=== PATIENT | female | born 1955 | race Caucasian/White ===

== ENCOUNTER 2020-11-01 22:12 | Emergency (ER) | payer OTHER, SELFPAY ==
--- NOTE | 2020-11-01 22:25 | DI.RAD.S_ITS ---
PROCEDURE: XR HIP W PEL IF DONE LT 2V INDICATIONS: fall with severe hip pain TECHNIQUE: AP pelvis with lateral view(s) of the left hip(s). COMPARISON: [facility], CT, CT PEL WO CON, 11/01/2020, 22:41. FINDINGS: Bones: There is a mildly displaced, impacted left subcapital femoral neck fracture. No dislocation. No fractures of the bones of the pelvis can be seen. Age-appropriate bony degenerative changes are seen. Note is made of osteitis pubis, which is not considered to be frankly abnormal in a woman of this age. Soft tissues: The visualized bowel gas pattern is normal. No suspicious soft tissue calcifications. IMPRESSION: Impacted left femoral neck fracture. Note: No significant discrepancy from the preliminary report. Dictated by: Benjy Vargas M.D. on 11/02/2020 at 8:02 Approved by: Benjy Vargas M.D. on 11/02/2020 at 8:03
[2020-11-01 22:27] VITALS: BP 171/70; PULSE 67; RESP 16; TEMP 36.6; O2SAT 98; BMI 27.3
--- NOTE | 2020-11-01 22:39 | DI.CT.S_ITS ---
PROCEDURE: CT PEL WO CON INDICATIONS: fall with hip/pelvis pain TECHNIQUE: Noncontrast 3 mm axial sections acquired through the bony pelvis, with coronal and sagittal reformatting. COMPARISON: [facility], CR, XR HIP W PEL IF DONE LT 2V, 11/01/2020, 22:20. FINDINGS: Image quality: Excellent. Bones: There is a mildly displaced, mildly angulated impacted left femoral neck fracture, within the subcapital region. No dislocation can be seen. No fractures of the bones of the pelvis can be seen. No right proximal femoral fracture is seen. Note is made of osteitis pubis, which is not considered to be frankly abnormal in a woman of this age. Soft tissues: Mild fluid inflammatory change can be seen surrounding the fracture. No dilated loops of bowel are seen. This patient is status post hysterectomy. No adnexal masses are seen. Mild prominence of groin lymph nodes can be seen, without sundar enlargement. IMPRESSION: Mildly displaced, impacted, mildly angulated left subcapital femoral neck fracture. Note: No significant discrepancy from the preliminary report. Dictated by: Benjy Vargas M.D. on 11/02/2020 at 8:04 Approved by: Benjy Vargas M.D. on 11/02/2020 at 8:05
--- NOTE | 2020-11-01 22:59 | ED_ITS ---
HPI - Extremity Injury (Lower) General Chief Complaint: Extremity Injury, Lower Stated Complaint: Broke hip, cant walk Time Seen by Provider: 11/01/20 22:19 Source: patient Mode of arrival: Wheelchair Limitations: no limitations History of Present Illness HPI Narrative: 65-year-old female nonsmoker with history of hypertension and atrial fibrillation presents with a friend and a chief complaint of left hip pain after a ground level fall earlier this evening. She was out to dinner in the [facility] when she was wearing slippery shoes and slipped in some water and then fell on her left hip. She has full recall of the event and denies any prodromal symptoms nor any head, neck or back injury. She does not take any anticoagulation for her atrial fibrillation. She denies any chest pain or shortness of breath. She has severe left hip pain which is significantly worse with attempts to ambulate or range of motion. She was evaluated on scene by paramedics and given some Toradol for pain relief and came here by private auto for evaluation. She denies any numbness, tingling or weakness. She has been NPO for liquids and solids since 170. Related Data Allergies Allergy/AdvReac Type Severity Reaction Status Date / Time No Known Drug Allergies Allergy Verified 11/01/20 22:27 Review of Systems Review of Systems Narrative: GENERAL: Denies chills, fatigue, malaise, fever, sweats. HEENT: Denies sinus pain, ear pain, sore throat, difficulty swallowing, dizziness. RESPIRATORY: Denies dyspnea, cough, wheezing, hemoptysis, sputum. CARDIOVASCULAR: Denies chest pain, palpitations, orthopnea, edema, GASTROINTESTINAL: Denies nausea, vomiting, abdominal pain, diarrhea, constipation, melena. : Denies dysuria, frequency, incontinence, hematuria, urinary retention. MUSCULOSKELETAL: See HPI SKIN: Denies rash, skin lesions, or other NEUROLOGIC: Denies weakness, headache, numbness, change in speech, confusion, seizures, incoordination. PSYCHIATRIC: No concerning psychosocial issues. 12 point review of systems is negative except for those stated above Patient History Social History Smoking Status: Never smoker Smoking Status: Never smoker alcohol intake frequency: holidays/special occasions only Substance Use Type: does not use Exam Narrative Exam Narrative: GENERAL: [65 year old patient appears stated age. Well-developed patient, in moderate distress, obviously in pain and rubbing her left hip HEAD: Atraumatic. Normocephalic. EYES: Pupils equal round and reactive. Extraocular motions intact. No scleral icterus. No injection or drainage. ENT: Nose without bleeding, purulent drainage. Throat without erythema, tonsillar hypertrophy or exudate. Airway patent. NECK: Trachea midline. Non tender CARDIOVASCULAR: Regular rate and rhythm without murmurs, gallops, or rubs. RESPIRATORY: Clear to auscultation. Breath sounds equal bilaterally. No wheezes, rales, or rhonchi. GASTROINTESTINAL: Abdomen soft, non-tender, nondistended. EXTREMITIES: Pain on palpation of left hip. No obvious deformities such as shortening or rotation. This is closed, isolated and neurovascularly intact. No knee or ankle pain. BACK: Nontender without deformity or crepitance. No flank tenderness. NEURO: AOx3. SKIN: No rash or erythema of visible areas Initial Vital Signs Initial Vital Signs: Vital Signs Temperature 98 F 11/01/20 22:27 Pulse Rate 67 11/01/20 22:27 Respiratory Rate 16 11/01/20 22:27 Blood Pressure 171/70 H 11/01/20 22:27 Pulse Oximetry 98 11/01/20 22:27 Scores CHADS-VASc Congestive heart failure: no Hypertension: yes Age 75 years or older: no Diabetes mellitus: no Stroke, TIA, or TE: no Vascular disease: no Age 65 to 74 years: no Sex category (female): Female CHADS-VASc Score: 2 Course Orders Ordered: ED Orders 11/01/20 22:25 XR hip w pel if done LT 2V Stat 11/01/20 22:39 CT pelvis wo con Stat 11/01/20 23:05 COVID19 -Nasal swab/Pre-Proc Stat Complete Blood Count AUTO DIFF Stat Comprehensive Metabolic Panel Stat 11/01/20 23:11 EKG-12 Lead Stat Discontinued Medications Hydromorphone HCl (Hydromorphone 0.5 Mg Inj) 0.5 mg IV NOW ONE Stop: 11/01/20 22:40 Last Admin: 11/01/20 23:14 Dose: 0.5 mg Documented by: SANDRA Hydromorphone HCl (Hydromorphone 0.5 Mg Inj) 0.5 mg IV NOW ONE Stop: 11/01/20 23:57 Last Admin: 11/02/20 00:00 Dose: 0.5 mg Documented by: TERESITA Hydromorphone HCl (Hydromorphone 0.5 Mg Inj) 0.5 mg IV NOW ONE Stop: 11/02/20 00:57 Last Admin: 11/02/20 01:01 Dose: 0.5 mg Documented by: SANDRA Sodium Chloride (Normal Saline 0.9%) 1,000 mls @ 125 mls/hr IV CONT JANIA Last Admin: 11/01/20 23:14 Dose: 125 mls/hr Documented by: SANDRA Ondansetron HCl (Ondansetron 4 Mg/2 Ml Inj) 4 mg IV NOW ONE Stop: 11/01/20 22:40 Last Admin: 11/01/20 23:13 Dose: 4 mg Documented by: SANDRA Consultations Consultation #1: OR at [facility] is currently on divert due to major repair and critical staffing. Sheri lives in [place] and requests transfer to [facility] in [place]. I've called the nursing traffic warehouse supervisor and they do have available beds. Attempting to push images. Face sheet faxed. Orthopedics have been paged. Consultation #2: Dr. Maki (hospitalist at [facility]) has called back and happy to accept on her service. Vital Signs Vital signs: Vital Signs - 8 hr 11/01/20 22:27 11/01/20 23:23 11/01/20 23:25 Temperature 98 F Pulse Rate 67 66 64 Respiratory Rate 16 Blood Pressure 171/70 H 163/72 H Pulse Oximetry 98 96 99 11/01/20 23:30 11/02/20 00:00 11/02/20 00:30 Temperature Pulse Rate 64 62 63 Respiratory Rate Blood Pressure 148/76 H 140/111 H 146/72 H Pulse Oximetry 96 97 95 11/02/20 01:00 Temperature Pulse Rate 63 Respiratory Rate Blood Pressure 135/67 Pulse Oximetry 93 MDM - Extremity Injury (Lower) Lab Data Result diagrams: 11/01/20 23:05 11/01/20 23:05 Labs: Lab Results 11/01/20 11/01/20 11/01/20 Range/Units 23:05 23:05 23:05 WBC 18.0 H (4.5-11.0) X10^3/uL RBC 4.48 (4.0-5.2) X10^6/uL Hgb 12.9 (12.0-16.0) g/dL Hct 39.1 (36-46) % MCV 87.2 (80-100) fL MCH 28.8 (26-34) PG MCHC 33.0 (30-36) % RDW 14.1 (11.6-14.8) % Plt Count 282 (150-400) X10^3/uL Neut % (Auto) 80.5 H (50-75) % Lymph % (Auto) 12.3 L (25-40) % Pierce % (Auto) 6.8 (3-14) % Eos % (Auto) 0.1 L (2-4) % Baso % (Auto) 0.3 (0-2) % Neut # (Auto) 39772 H (1607-9475) /uL Lymph # (Auto) 2200 (7573-9167) /uL Pierce # (Auto) 1200 H (0-900) /uL Eos # (Auto) 0 (0-450) /uL Baso # (Auto) 100 (0-100) /uL Sodium 140 (137-145) mmol/L Potassium 4.0 (3.4-5.1) mmol/L Chloride 105 (98-107) mmol/L Carbon Dioxide 26 (22-32) mmol/L BUN 27 H (7-17) mg/dL Creatinine 0.82 (0.52-1.04) mg/dL Estimated GFR > 60.0 (>60) mL/min BUN/Creatinine Ratio 32.9 H (6-22) Glucose 106 (80-110) mg/dL Calcium 9.3 (8.4-10.2) mg/dL Total Bilirubin 0.6 (0.2-1.3) mg/dL AST 33 (14-36) IU/L ALT 25 (<35) IU/L Alkaline Phosphatase 77 (38-126) U/L Total Protein 8.0 (6.3-8.2) g/dL Albumin 4.6 (3.5-5.0) g/dL Globulin 3.4 (1.7-4.1) g/dL Albumin/Globulin Ratio 1.4 (1.0-2.8) SARS-CoV-2 (PCR) Negative (Negative) Urine Dip Bedside Urine Glucose Negative Bedside Urine Bilirubin - Negative Bedside Urine Ketone - Negative Urine Specific [place] 1.020 Bedside Urine Occult Blood +/- Bedside Urine pH 6.0 Bedside Urine Protein - Negative Bedside Urine Urobilinogen - Negative Bedside Urine Nitrite - Negative Bedside Urine Leukocytes - Negative Esterase Imaging Data Left Hip / Pelvis: My Impression: Left subcapital fx Radiologist's Impression: Left femoral neck fracture ECG Data Interpretation: EKG is normal sinus rhythm rate [ 61] and free of any signs of ischemia or ectopy. No ST segmental elevation or depression. No T wave inversions Critical Care Time Critical Care Time Attestation: The high probability of a clinically significant, sudden or life threatening deterioration of the [MSK] system(s) required my full and direct attention, intervention and personal management. The aggregate critical care time was [30] minutes. This time is in addition to time spent performing reported procedures but includes the following: [x] Data Review and interpretation [x] Patient assessment and monitoring of vital signs [x] Documentation [x] Medication orders and management Discharge Plan Departure Patient Disposition: [facility] Clinical Impression: Fracture of hip Qualifiers: Encounter type: initial encounter Fracture type: closed Laterality: left Q ualified Code(s): S72.002A - Fracture of unspecified part of neck of left femur, initial encounter for closed fracture
[2020-11-01] MEDS: ONDANSETRON 4 MG/2 ML INJ IV (23:13)
[2020-11-01] MEDS: HYDROMORPHONE 0.5 MG INJ IV (23:14)
[2020-11-01] MEDS: SODIUM CHLORIDE 0.9% 1,000 ML 125 ML IV (23:14)
[2020-11-01 23:23] VITALS: PULSE 66; O2SAT 96
[2020-11-01 23:25] VITALS: BP 163/72; PULSE 64; O2SAT 99
[2020-11-01 23:30] VITALS: BP 148/76; PULSE 64; O2SAT 96
[2020-11-01 23:35] LABS: Add Manual Diff / Slide Review NO; Basophils Absolute Auto 100 /uL (0-100); Basophils Percent Auto 0.3 % (0-2); Eosinophils Absolute Auto 0 /uL (0-450); Eosinophils Percent Auto 0.1 % (2-4); Hematocrit 39.1 % (36-46); Hemoglobin 12.9 g/dL (12.0-16.0); Lymphocytes Absolute Auto 2200 /uL (1100-4500); Lymphocytes Percent Auto 12.3 % (25-40); Mean Corpuscular Hemoglobin 28.8 PG (26-34); Mean Corpuscular Volume 87.2 fL (80-100); Monocytes Absolute Auto 1200 /uL (0-900); Monocytes Percent Auto 6.8 % (3-14); Neutrophils Absolute Auto 14500 /uL (1500-7000); Neutrophils Percent Auto 80.5 % (50-75); Platelet Count 282 X10^3/uL (150-400); Red Blood Cell Count 4.48 X10^6/uL (4.0-5.2); Red Cell Distribution Width 14.1 % (11.6-14.8)
[2020-11-01 23:36] LABS: Alanine Aminotransferase 25 IU/L (<35); Albumin 4.6 g/dL (3.5-5.0); Albumin Globulin Ratio 1.4 (1.0-2.8); Alkaline Phosphatase 77 U/L (38-126); Aspartate Aminotransferase 33 IU/L (14-36); BUN Creatinine Ratio 32.9 (6-22); Bilirubin Total 0.6 mg/dL (0.2-1.3); Blood Urea Nitrogen 27 mg/dL (7-17); Calcium 9.3 mg/dL (8.4-10.2); Carbon Dioxide 26 mmol/L (22-32); Chloride 105 mmol/L (98-107); Estimated Glomerular Filt Rate > 60.0 mL/min (>60); Globulin 3.4 g/dL (1.7-4.1); Glucose 106 mg/dL (80-110); HEMOLYSIS < 15 (0-50); Sodium 140 mmol/L (137-145)
[2020-11-02] VITALS: BP 140/111; PULSE 62; O2SAT 97
[2020-11-02 00:11] LABS: COVID19 -Nasal RAPID Negative (Negative)
[2020-11-02 00:30] VITALS: BP 146/72; PULSE 63; O2SAT 95
[2020-11-02 01:00] VITALS: BP 135/67; PULSE 63; O2SAT 93
[2020-11-02] MEDS: HYDROMORPHONE 0.5 MG INJ IV ×2 (01:01)
== END 2020-11-02 01:19 | disposition short-term general hospital (02) ==
PROVIDERS: Emergency Provider Emergency Medicine
DX: S72.002A Fracture of unspecified part of neck of left femur, initial encounter for closed fracture (principal); R07.9 Chest pain, unspecified; W01.0XXA Fall on same level from slipping, tripping and stumbling without subsequent striking against object, initial encounter
CPT/HCPCS: 36415; 72192; 73502; 80053; 81003; 85025; 87635; 93005; 93010; 96374; 96375; 96376; 99285; 99291; C9803; J1170; J2405